=== PATIENT | male | born 1960 | race Caucasian/White ===

== ENCOUNTER 2020-09-28 15:17 | Emergency (ER) | payer OTHER ==
[2020-09-28 15:36] VITALS: BP 112/82; PULSE 83; RESP 18; TEMP 98.1
--- NOTE | 2020-09-28 16:35 | ED ---
URI HPI - General Chief Complaint: Upper Respiratory Infection Stated Complaint: Headache,Body Aches Time Seen by Provider: 09/28/20 16:13 Source: patient Mode of arrival: ambulatory Limitations: no limitations - History of Present Illness Initial Comments: Patient is a 60-year-old male presenting to the emergency department requesting a Covid test. Patient states for the last 8 days he has been having headaches, body aches, chills and sweats. He denies any cough, no shortness of breath or chest pain. His appetite has been low although he has been drinking liquids. He denies any vomiting, no diarrhea or abdominal pain. He feels like his symptoms have been getting better over the past few days. He has no further complaints at this time. Upon arrival to the ER, his vital signs are stable. - Related Data Allergies Allergy/AdvReac Type Severity Reaction Status Date / Time No Known Allergies Allergy Verified 09/28/20 15:36 Review of Systems ROS Statement: Those systems with pertinent positive or pertinent negative responses have been documented in the HPI. ROS Other: All systems not noted in ROS Statement are negative. Past Medical History Past Medical History: No Reported History History of Any Multi-Drug Resistant Organisms: None Reported Past Surgical History: No Surgical Hx Reported Past Psychological History: No Psychological Hx Reported Smoking Status: Current every day smoker Past Alcohol Use History: Daily Past Drug Use History: None Reported General Exam - General Exam Comments Initial Comments: GENERAL: Patient is well-developed and well-nourished. Patient is nontoxic and in no acute distress. HEAD: Atraumatic, normocephalic. EYES: Pupils equal round and reactive to light, extraocular movements intact, sclera anicteric, conjunctiva are normal. Eyelids were unremarkable. ENT: TMs normal, nares patent, oropharynx clear without exudates. Moist mucous membranes. NECK: Normal range of motion, supple without lymphadenopathy or JVD. LUNGS: Unlabored respirations. Breath sounds clear to auscultation bilaterally and equal. No wheezes rales or rhonchi. HEART: Regular rate and rhythm without murmurs, rubs or gallops. ABDOMEN: Soft, nontender, normoactive bowel sounds. No guarding, no rebound. No masses appreciated. : Deferred MUSCULOSKELETAL: Normal extremities with adequate strength and normal range of motion, no pitting or edema. No clubbing or cyanosis. NEUROLOGICAL: Patient is alert and oriented x 3. Motor and sensory are also intact. Cranial nerves II through XII grossly intact. Symmetrical smile. Normal speech, normal gait. PSYCH: Normal mood, normal affect. SKIN: Warm, Dry, normal turgor, no rashes or lesions noted. Limitations: no limitations Course Vital Signs 09/28/20 15:33 Temperature 98.1 F Pulse Rate 83 Respiratory 18 Rate Blood Pressure 112/82 O2 Sat by Pulse 98 Oximetry Medical Decision Making - Medical Decision Making Patient is a 60-year-old male here requesting a Covid test. He has had general body aches, fatigue, low appetite over the past 8 days. No fevers although he has been having sweats. His vital signs today are normal, his exam is unremarkable. Patient has been declining anything but a Covid test. His Covid test today is positive. He is still complaining of a headache. I will give him a shot of Toradol before DC. Return parameters were discussed with the patient and he verbalized understanding. He is stable for discharge. - Lab Data Lab Results 09/28/20 Range/Units 16:26 Coronavirus (PCR) Detected A (Not Detectd) Disposition Clinical Impression: COVID-19, Headache Disposition: HOME SELF-CARE Condition: Stable Instructions (If sedation given, give patient instructions): Coronavirus Disease 2019 (COVID-19) Additional Instructions: Please return to the Emergency Department if symptoms worsen or any other concerns. Rapid Covid test is positive. Please continue with your pain medications at home. Continue to increase fluid intake and normal diet. Follow-up with your regular family doctor. Is patient prescribed a controlled substance at d/c from ED?: No Referrals: Anna Hollis MD [Primary Care Provider] - 1-2 days Time of Disposition: 17:17
[2020-09-28] MEDS ORDERED: KETOROLAC 15 MG/ML 1 ML VIAL IM STA (17:15)
== END 2020-09-28 17:31 | disposition home or self-care (01) ==
LOC: EC 15:17
DX: U07.1 COVID-19 (principal); F17.200 Nicotine dependence, unspecified, uncomplicated
CPT/HCPCS: 87635; 99284; 96372; J1885